=== PATIENT | male | born 1960 | race African-American/Black ===

== ENCOUNTER 2016-08-11 12:08 | Emergency (ER) | payer SELFPAY ==
[~2016-08-11] VITALS: Ht 182.9 cm; Wt 99.8 kg
[2016-08-11] MEDS ORDERED: SULF1TAB24 PO (13:05)
[2016-08-11] MEDS ORDERED: CEPH-264 PO (13:05)
--- NOTE | 2016-08-11 13:05 | PHYS DOC ---
Past Medical History Past Medical History: No Pertinent History Past Surgical History: Other Additional Past Surgical Histo: I&D ABSCESS L THIGH,INGROWN TOENAIL Additional Information: nonsmoker Alcohol Use: Rarely Drug Use: None Adult General Chief Complaint Chief Complaint: EYE PROBLEMS HPI HPI Patient is a 55 year old male who presents with left upper eyelid swelling for 2-3 days. He denies pain but states that it just feels irritated because of the swelling. He has clear drainage from the eye without purulence. He has increased drainage from the eye with bright lights but denies photophobia. He denies vision changes or pain with movement of the eye. He denies any injury to the eye or foreign body in the eye. He does not wear contacts. He occasionally wears reading glasses. He does not have a PCP. Review of Systems Review of Systems Constitutional: Denies fever or chills. [] Eyes: Denies change in visual acuity, redness, or eye pain. Reports left upper eyelid swelling and clear eye drainage. HENT: Denies ear pain, nasal congestion or sore throat. [] Integument: Denies rash or skin lesions. [] Neurologic: Denies headache, focal weakness or sensory changes. [] Allergies Allergies Allergies Coded Allergies Type Severity Reaction Last Updated Verified No Known Drug Allergies 08/11/16 No Physical Exam Physical Exam Constitutional: Well developed, well nourished, no acute distress, non-toxic appearance. [] HENT: Normocephalic, atraumatic, bilateral external ears normal, oropharynx moist, no oral exudates, nose normal. [] Eyes: PERRLA, EOMI, conjunctiva normal, clear discharge. There is moderate edema of the left upper eyelid diffusely. There is no pain with eye movement. There is no injection of the conjunctiva. Visual acuity: OS 20/40, OD 20/30, OU 20/30 Skin: Warm, dry, mild left upper eyelid erythema, no rash. [] Neurologic: Alert and oriented X 3, normal motor function, normal sensory function, no focal deficits noted. [] Psychologic: Affect normal, judgement normal, mood normal. [] Current Patient Data Vital Signs Vital Signs Date Time Temp Pulse Resp B/P Pulse Ox O2 Delivery O2 Flow Rate FiO2 08/11/16 12:13 98.3 88 18 176/104 97 Room Air 98.3 EKG EKG [] Radiology/Procedures Radiology/Procedures [] Course & Med Decision Making Course & Med Decision Making Pertinent Labs and Imaging studies reviewed. (See chart for details) The patient presents with left upper eyelid swelling for 2 days. He does not have signs of orbital cellulitis. He is discharged home with prescriptions for Keflex and Bactrim. He is given contact information for ophthalmology for follow -up. Return precautions were discussed. He verbalizes understanding and agrees with plan. Dragon Disclaimer Dragon Disclaimer This electronic medical record was generated, in whole or in part, using a voice recognition dictation system. Departure Departure Impression: Primary Impression: Periorbital cellulitis of left eye Disposition: HOME, SELF-CARE Condition: STABLE Referrals: SAMMY MARRERO MD Patient Instructions: Periorbital Cellulitis Additional Instructions: You were seen for an infection of the left upper eyelid. Please complete all of the prescribed antibiotics, even if your eye is better. Please take both antibiotics. Please follow up with the hadoop architect listed below if your symptoms are not improving in 2-3 days. Return to the emergency department if you have increased pain or swelling, decreased vision, fever, or other new or concerning symptoms. Scripts Cephalexin (Keflex)500 Mg Capsule1 Cap PO QID 7 Days Prov:WELLINGTON LLAMAS 08/11/16 Sulfamethoxazole/Trimethoprim (Bactrim Ds Tablet)1 Each Tablet2 Tab PO BID 7 Days Prov:WELLINGTON LLAMAS 08/11/16 WELLINGTON LLAMAS Aug 11, 2016 13:05
[2016-08-11 13:23] VITALS: BP 158/89
== END 2016-08-11 13:23 | disposition home or self-care (01) ==
LOC: ER 12:08
DX: L03.213 Periorbital cellulitis (principal)
CPT/HCPCS: 99283